=== PATIENT | male | born 1955 ===

== ENCOUNTER 2017-02-19 10:40 | Inpatient (IN) | payer BC ==
[2017-02-19 10:40] VITALS: BMI 29.0
[2017-02-19 11:38] LABS: BASO # 0.1 K/uL (0.0-0.2); BASO % 1.1 % (0.0-2.0); EOS # 0.4 K/uL (0.0-0.7); EOS % 3.4 % (0.0-4.0); HEMATOCRIT 46.7 % (35.0-51.0); LYMPH # 2.8 K/uL (1.0-4.3); LYMPH % 24.1 % (20.0-40.0); MEAN CELL VOLUME 84.8 fl (80.0-94.0); MEAN CORPUSCULAR HEMOGLOBIN 28.4 pg (27.0-31.0); MEAN CORPUSCULAR HGB CONC 33.5 g/dL (33.0-37.0); MEAN PLATELET VOLUME 8.7 fl (7.2-11.7); MONO # 0.7 K/uL (0.0-0.8); MONO % 6.5 % (0.0-10.0); NEUT # 7.4 K/uL (1.8-7.0); NEUT % 64.9 % (50.0-75.0); NRBC % 0.2 % (0.0-0.0); RED CELL DISTRIBUTION WIDTH 12.7 % (11.5-14.5); WHITE BLOOD COUNT 11.4 K/uL (4.8-10.8)
[2017-02-19 11:50] LABS: PARTIAL THROMBOPLASTIN TIME 35.7 Seconds (25.6-37.1)
[2017-02-19 12:12] LABS: BLOOD UREA NITROGEN 19 mg/dl (9-20); GFR AFRICAN-AMERICAN > 60
[2017-02-19 12:13] LABS: ALB/GLOB RATIO 1.1 (1.0-2.1)
--- NOTE | 2017-02-19 12:47 | ED PDOC ---
HPI: General Adult Time Seen by Provider: 02/19/17 10:53 Chief Complaint (Nursing): Palpitations Chief Complaint (Provider): palpitations, dizziness History Per: Family, Clinical Research Physician (Corazon #[id number]) History/Exam Limitations: no limitations Onset/Duration Of Symptoms: Days (3-4) Current Symptoms Are (Timing): Intermittent Episodes Severity: Moderate Recently: Treated By A Physician Additional Complaint(s): 62yo male presents from cardiology department where he was about to undergo a stress test w/ Dr Taylor, noticed runs of tachycardia on monitor, brought to ED instead. EKG from cardiology reveals possible junctional tachycardia. Patient c/o dizziness and over few days. Denies current chest pain or SOB. Past Medical History Reviewed: Historical Data, Nursing Documentation, Vital Signs Vital Signs: Last Vital Signs Temp 98.7 F 02/19/17 10:49 Pulse 71 02/19/17 11:30 Resp 17 02/19/17 10:49 BP 136/92 H 02/19/17 10:49 Pulse Ox 99 02/19/17 12:49 - Medical History PMH: HTN - Surgical History Surgical History: Cholecystectomy - Family History Family History: States: Unknown Family Hx - Social History Current smoker - smoking cessation education provided: No - Immunization History Hx Tetanus Toxoid Vaccination: No Hx Influenza Vaccination: Yes Hx Pneumococcal Vaccination: Yes - Home Medications Home Medications: Ambulatory Orders Medication Instructions Recorded Aspirin 81 mg PO DAILY 01/25/17 Losartan [Cozaar] 50 mg PO DAILY 01/25/17 Acetaminophen with Codeine 1 tab PO Q8H PRN 02/19/17 [Tylenol with Codeine #3 Tablet] Ergocalciferol (Vitamin D2) 50,000 unit PO FR 02/19/17 [Vitamin D2] - Allergies Allergies/Adverse Reactions: Allergies Allergy/AdvReac Type Severity Reaction Status Date / Time No Known Allergies Allergy Verified 02/19/17 10:42 Review of Systems ROS Statement: Except As Marked, All Systems Reviewed And Found Negative Constitutional: Negative for: Fever, Chills Cardiovascular: Positive for: Palpitations, Light Headedness Gastrointestinal: Negative for: Nausea, Vomiting Genitourinary Male: Negative for: Dysuria, Frequency Musculoskeletal: Negative for: Neck Pain, Shoulder Pain Skin: Negative for: Rash, Lesions, Jaundice Neurological: Positive for: Dizziness. Negative for: Weakness, Change in Speech Physical Exam - Reviewed Nursing Documentation Reviewed: Yes Vital Signs Reviewed: Yes - Physical Exam Appears: Positive for: Well, Non-toxic, No Acute Distress Head Exam: Positive for: ATRAUMATIC, NORMAL INSPECTION, NORMOCEPHALIC Skin: Positive for: Normal Color, Warm, DRY Eye Exam: Positive for: EOMI, Normal appearance, PERRL ENT: Positive for: Normal ENT Inspection Neck: Positive for: Normal, Painless ROM Cardiovascular/Chest: Positive for: Regular Rate, Rhythm, Tachycardia, Irregularly Irregular Respiratory: Positive for: CNT, Normal Breath Sounds Gastrointestinal/Abdominal: Positive for: Normal Exam, Bowel Sounds, Soft. Negative for: Tenderness, Guarding Back: Positive for: Normal Inspection Extremity: Positive for: Normal ROM Neurologic/Psych: Positive for: Alert, Oriented. Negative for: Motor/Sensory Deficits - Laboratory Results Result Diagrams: 02/19/17 11:20 02/19/17 11:20 - ECG O2 Sat by Pulse Oximetry: 99 Medical Decision Making Medical Decision Making: Dr Taylor packaging design engineer presented patient to ED with EKG in hand, recommends admitting for cardiac workup PMD Yung, discussed case who requested Dr Gant, consult placed. EKGs from cardiology dept scanned into chart Labs reviewed, trop neg ASA 81mg ordered d/w Dr Barragan for admission D/w Dr Gant for consult. Disposition - Clinical Impression Clinical Impression: Junctional tachycardia - Patient ED Disposition Is Patient to be Admitted: Yes Counseled Patient/Family Regarding: Studies Performed, Diagnosis, Need For Followup, Rx Given - Disposition Disposition Time: 12:35 Condition: STABLE - Pt Status Changed To: Hospital Disposition Of: Inpatient - Admit Certification Admit to Inpatient:: After my assessment, the patient will require hospitalization for at least two midnights. This is because of the severity of symptoms shown, intensity of services needed, and/or the medical risk in this patient being treated as an outpatient.
[2017-02-19 13:05] LABS: RBC URINE 2 /hpf (0-3); URINE BILIRUBIN NEGATIVE (NEGATIVE); URINE BLOOD NEGATIVE (NEGATIVE); URINE COLOR YELLOW (YELLOW); URINE GLUCOSE (UA) NEG (Normal); URINE KETONE NEGATIVE (NEGATIVE); URINE LEUKOCYTE ESTERASE NEG Leu/uL (Negative); URINE PROTEIN NEGATIVE (NEGATIVE); URINE UROBILINOGEN 0.2-1.0 mg/dL (0.2-1.0); WBC URINE < 1 /hpf (0-5)
[2017-02-19] MEDS ORDERED: Acetaminophen-Codeine 300/30 mg Tab PO PRN (15:33)
[2017-02-19] MEDS ORDERED: Ergocalciferol 50,000 Intl Units Cap PO SCH (15:45)
--- NOTE | 2017-02-19 16:01 | CP.PCM.HP ---
History of Present Illness - History of Present Illness History of Present Illness: 62 year old male with PMH of HTN, hx of abnormal EKG presented after being sent from stress test lab. He presented to have stress test done, abnornal rhythm strip was noted. Patient is currently asymptomatic in the emergency department. His HR 80-130s. Denies any dizziness, headahce, chest pain, dyspnea, nausea, vomiting, abdominal pain. He has not been recently ill. He denies cardiac history. He was referred to neurologist for headaches. Review of chart: ED visit in Jan 2017, dx with trigeminal neuralgia, given tegretol. EKG at that time showed sinus tachycardia with LAD 12 point review of systems otherwise negative. His PMD is Dr. Barragan. MEdications: losartan, aspirin Allergies: NKDA Present on Admission - Present on Admission Any Indicators Present on Admission: No Past Patient History - Past Social History Smoking Status: Former Smoker - CARDIAC Hx Hypertension: Yes - PSYCHIATRIC Hx Substance Use: No - SURGICAL HISTORY Hx Cholecystectomy: Yes Meds Allergies/Adverse Reactions: Allergies Allergy/AdvReac Type Severity Reaction Status Date / Time No Known Allergies Allergy Verified 02/19/17 10:42 Physical Exam - Constitutional Appears: Well, No Acute Distress - Head Exam Head Exam: ATRAUMATIC, NORMAL INSPECTION, NORMOCEPHALIC - ENT Exam ENT Exam: Mucous Membranes Moist, Normal Exam - Respiratory Exam Respiratory Exam: Clear to Auscultation Bilateral, NORMAL BREATHING PATTERN - Cardiovascular Exam Cardiovascular Exam: Tachycardia, Irregular Rhythm, +S1, +S2 - GI/Abdominal Exam GI & Abdominal Exam: Soft. absent: Distended, Guarding - Extremities Exam Extremities exam: Positive for: normal inspection. Negative for: pedal edema - Neurological Exam Neurological exam: Alert, CN II-XII Intact, Oriented x3 Additional comments: gait deferred for now - Psychiatric Exam Psychiatric exam: Normal Affect, Normal Mood - Skin Skin Exam: Dry, Intact, Normal Color, Warm Results - Vital Signs Recent Vital Signs: Last Vital Signs Temp 98.7 F 02/19/17 10:49 Pulse 71 02/19/17 11:30 Resp 17 02/19/17 10:49 BP 136/92 H 02/19/17 10:49 Pulse Ox 99 02/19/17 15:15 - Labs Result Diagrams: 02/19/17 11:20 02/19/17 11:20 Labs: Laboratory Results - last 24 hr 02/19/17 02/19/17 02/19/17 11:20 11:20 11:20 WBC 11.4 H RBC 5.51 Hgb 15.6 Hct 46.7 MCV 84.8 MCH 28.4 MCHC 33.5 RDW 12.7 Plt Count 295 MPV 8.7 Neut % (Auto) 64.9 Lymph % (Auto) 24.1 [place] % (Auto) 6.5 Eos % (Auto) 3.4 Baso % (Auto) 1.1 Neut # 7.4 H Lymph # 2.8 [place] # 0.7 Eos # 0.4 Baso # 0.1 PT 11.6 INR 1.0 APTT 35.7 Sodium 143 Potassium 4.4 Chloride 109 H Carbon Dioxide 23 Anion Gap 15 BUN 19 Creatinine 1.0 Est GFR ( Amer) > 60 Est GFR (Non-Af Amer) > 60 Random Glucose 133 H Calcium 8.9 Total Bilirubin 0.3 AST 21 ALT 53 Alkaline Phosphatase 113 Troponin I < 0.0120 NT-Pro-B Natriuret Pep 57.1 Total Protein 7.2 Albumin 3.7 Globulin 3.5 Albumin/Globulin Ratio 1.1 Urine Color Urine Clarity Urine pH Ur Specific [place] Urine Protein Urine Glucose (UA) Urine Ketones Urine Blood Urine Nitrate Urine Bilirubin Urine Urobilinogen Ur Leukocyte Esterase Urine RBC (Auto) Urine Microscopic WBC 02/19/17 12:50 WBC RBC Hgb Hct MCV MCH MCHC RDW Plt Count MPV Neut % (Auto) Lymph % (Auto) [place] % (Auto) Eos % (Auto) Baso % (Auto) Neut # Lymph # [place] # Eos # Baso # PT INR APTT Sodium Potassium Chloride Carbon Dioxide Anion Gap BUN Creatinine Est GFR ( Amer) Est GFR (Non-Af Amer) Random Glucose Calcium Total Bilirubin AST ALT Alkaline Phosphatase Troponin I NT-Pro-B Natriuret Pep Total Protein Albumin Globulin Albumin/Globulin Ratio Urine Color Yellow Urine Clarity Clear Urine pH 6.0 Ur Specific [place] 1.011 Urine Protein Negative Urine Glucose (UA) Neg Urine Ketones Negative Urine Blood Negative Urine Nitrate Negative Urine Bilirubin Negative Urine Urobilinogen 0.2-1.0 Ur Leukocyte Esterase Neg Urine RBC (Auto) 2 Urine Microscopic WBC < 1 Assessment & Plan (1) Abnormal EKG Assessment and Plan: 62 year old male with hx of htn, trigeminal neuralgia admitted for abnormal ekg with tachycardia. Patient has never had echo. Echo ordered cardiology consult. can give losartan now for htn await further input from cardiology heart healthy diet pending tsh, lipid panel in AM Status: Acute (2) Hypertension Assessment and Plan: resume home medications Status: Chronic
[2017-02-19 16:39] LABS: THYROID STIMULATING HORMONE 4.06 mIU/ML (0.46-4.68)
[2017-02-19 16:41] LABS: SODIUM 143 mmol/l (132-148)
[2017-02-19 16:42] LABS: POTASSIUM 4.4 MMOL/L (3.6-5.0)
[2017-02-19 16:43] LABS: CHLORIDE 109 mmol/L (98-107)
[2017-02-19 16:44] LABS: CARBON DIOXIDE 23 mmol/L (22-30)
[2017-02-19 16:45] LABS: TOTAL PROTEIN 7.2 G/DL (6.3-8.2)
[2017-02-19 16:49] LABS: BILIRUBIN,TOTAL 0.3 mg/dl (0.2-1.3)
[2017-02-19 16:50] LABS: AST/SGOT 21 U/L (17-59)
[2017-02-19 16:51] LABS: ALT/SGPT 53 U/L (21-72)
[2017-02-19 16:52] LABS: ALKALINE PHOSPHATASE 113 U/L (38-126)
[2017-02-19 16:58] LABS: CALCIUM 8.9 mg/dL (8.4-10.2)
[2017-02-19 16:59] LABS: GLUCOSE,RANDOM 133 mg/dL (75-110)
--- NOTE | 2017-02-19 17:39 | CARD ---
APPROVED REPORT EKG Measurement Heart [id number] IN P54 [id number] <Conclusion> NSR with APCs [place] (4 beats ) narrow complex tachycardia rate 110-120 bpm
--- NOTE | 2017-02-19 18:50 | CP.PCM.CON ---
History of Present Illness - History of Present Illness History of Present Illness: patient seen/examined. consult to follow. has dyspnea on exertion was scheduled for stress test found to have ecopic atrial tachycardia. Plan: check cardiac enzymes. will give IV cardizem. check echocardiogram. Past Patient History - Past Medical History & Family History Past Medical History?: Yes - Past Social History Smoking Status: Never Smoked - CARDIAC Hx Cardiac Disorders: Yes Hx Hypertension: Yes - PULMONARY Hx Respiratory Disorders: No - NEUROLOGICAL Hx Neurological Disorder: No - HEENT Hx HEENT Problems: No - RENAL Hx Chronic Kidney Disease: No - ENDOCRINE/METABOLIC Hx Endocrine Disorders: No - HEMATOLOGICAL/ONCOLOGICAL Hx Blood Disorders: No Hx AIDS: No Hx Human Immunodeficiency Virus (HIV): No - INTEGUMENTARY Hx Dermatological Problems: No - MUSCULOSKELETAL/RHEUMATOLOGICAL Hx Musculoskeletal Disorders: No Hx Falls: No - GASTROINTESTINAL Hx Gastrointestinal Disorders: Yes Hx Gall Bladder Disease: Yes - GENITOURINARY/GYNECOLOGICAL Hx Genitourinary Disorders: No - PSYCHIATRIC Hx Psychophysiologic Disorder: No Hx Substance Use: No - SURGICAL HISTORY Hx Surgeries: Yes Hx Cholecystectomy: Yes - ANESTHESIA Hx Anesthesia: Yes Hx Anesthesia Reactions: No Hx Malignant Hyperthermia: No Has any member of the family had a problem w/ anesthesia?: No Meds Allergies/Adverse Reactions: Allergies Allergy/AdvReac Type Severity Reaction Status Date / Time No Known Allergies Allergy Verified 02/19/17 10:42 - Medications Medications: Current Medications Acetaminophen/Codeine Phosphate (Tylenol/Codeine 300 Mg/30 Mg) 1 tab PO Q8H PRN PRN Reason: Pain, severe (8-10) Aspirin (Aspirin Chewable) 81 mg PO DAILY [facility] Last Admin: 02/19/17 16:12 Dose: 81 mg Ergocalciferol (Drisdol 50,000 Intl Units Cap) 1 cap PO FR [facility] Last Admin: 02/19/17 18:01 Dose: 1 cap Losartan Potassium (Cozaar) 50 mg PO DAILY [facility] Results - Vital Signs Recent Vital Signs: Last Vital Signs Temp 98.6 F 02/19/17 16:57 Pulse 125 H 02/19/17 16:57 Resp 18 02/19/17 17:20 BP 123/87 02/19/17 16:57 Pulse Ox 98 02/19/17 16:57 - Labs Result Diagrams: 02/19/17 11:20 02/19/17 11:20 Labs: Laboratory Results - last 24 hr 02/19/17 02/19/17 02/19/17 11:20 11:20 11:20 WBC 11.4 H RBC 5.51 Hgb 15.6 Hct 46.7 MCV 84.8 MCH 28.4 MCHC 33.5 RDW 12.7 Plt Count 295 MPV 8.7 Neut % (Auto) 64.9 Lymph % (Auto) 24.1 [place] % (Auto) 6.5 Eos % (Auto) 3.4 Baso % (Auto) 1.1 Neut # 7.4 H Lymph # 2.8 [place] # 0.7 Eos # 0.4 Baso # 0.1 PT 11.6 INR 1.0 APTT 35.7 Sodium 143 Potassium 4.4 Chloride 109 H Carbon Dioxide 23 Anion Gap 15 BUN 19 Creatinine 1.0 Est GFR ( Amer) > 60 Est GFR (Non-Af Amer) > 60 Random Glucose 133 H Calcium 8.9 Total Bilirubin 0.3 AST 21 ALT 53 Alkaline Phosphatase 113 Troponin I < 0.0120 NT-Pro-B Natriuret Pep 57.10 Total Protein 7.2 Albumin 3.7 Globulin 3.5 Albumin/Globulin Ratio 1.1 TSH 3rd Generation 4.06 Urine Color Urine Clarity Urine pH Ur Specific [place] Urine Protein Urine Glucose (UA) Urine Ketones Urine Blood Urine Nitrate Urine Bilirubin Urine Urobilinogen Ur Leukocyte Esterase Urine RBC (Auto) Urine Microscopic WBC 02/19/17 12:50 WBC RBC Hgb Hct MCV MCH MCHC RDW Plt Count MPV Neut % (Auto) Lymph % (Auto) [place] % (Auto) Eos % (Auto) Baso % (Auto) Neut # Lymph # [place] # Eos # Baso # PT INR APTT Sodium Potassium Chloride Carbon Dioxide Anion Gap BUN Creatinine Est GFR ( Amer) Est GFR (Non-Af Amer) Random Glucose Calcium Total Bilirubin AST ALT Alkaline Phosphatase Troponin I NT-Pro-B Natriuret Pep Total Protein Albumin Globulin Albumin/Globulin Ratio TSH 3rd Generation Urine Color Yellow Urine Clarity Clear Urine pH 6.0 Ur Specific [place] 1.011 Urine Protein Negative Urine Glucose (UA) Neg Urine Ketones Negative Urine Blood Negative Urine Nitrate Negative Urine Bilirubin Negative Urine Urobilinogen 0.2-1.0 Ur Leukocyte Esterase Neg Urine RBC (Auto) 2 Urine Microscopic WBC < 1
--- NOTE | 2017-02-19 18:51 | CP.PCM.CON ---
History of Present Illness - History of Present Illness History of Present Illness: I was asked to see patient by Dr Barragan. Patient is a 62 year old male with PMH HTN, hypercholesterolemia who presents with dsypnea. Symptoms have been progressive for the past few weeks, and the patient was noted was scheduled to have outapteint stress test. He was sent to the ER due to junctional tachycardia. Patient denies current chest pain. Review of Systems - Constitutional Constitutional: absent: As Per HPI, Anorexia, Chills, Daytime Sleepiness, Excessive Sweating, Fatigue, Fever, Frequent Falls, Headache, Increased Appetite , Lethargy, Malaise, Night Sweats, Snoring, Sleep Apnea, Weight Gain, Weight Loss, Weakness, Other - EENT Eyes: absent: As Per HPI, Blind Spots, Blurred Vision, Change in Vision, Decreased Night Vision, Diplopia, Discharge, Dry Eye, Exophthalmos, Floaters, Irritation, Itchy Eyes, Loss of Peripheral Vision, Pain, Photophobia, Requires Corrective Lenses, Sees Flashes, Spots in Vision, Tunnel Vision, Other Visual Disturbances, Loss of Vision, Other Ears: absent: As Per HPI, Decreased Hearing, Ear Discharge, Ear Pain, Tinnitus, Abnormal Hearing, Disequilibrium, Dizziness, Other Nose/Mouth/Throat: absent: As Per HPI, Epistaxis, Nasal Congestion, Nasal Discharge, Nasal Obstruction, Nasal Trauma, Nose Pain, Post Nasal Drip, Sinus Pain, Sinus Pressure, Bleeding Gums, Change in Voice, Dental Pain, Dry Mouth, Dysphagia, Halitosis, Hoarsness, Lip Swelling, Mouth Lesions, Mouth Pain, Odynophagia, Sore Throat, Throat Swelling, Tongue Swelling, Facial Pain, Neck Pain, Neck Mass, Other - Cardiovascular Cardiovascular: absent: As Per HPI, Acrocyanosis, Chest Pain, Chest Pain at Rest , Chest Pain with Activity, Claudication, Diaphoresis, Dyspnea, Dyspnea on Exertion, Edema, Irregular Heart Rhythm, Pain Radiating to Arm/Neck/Jaw, Leg Edema, Leg Ulcers, Lightheadedness, Orthopnea, Palpitations, Paroxysmal Nocturnal Dyspnea, Pedal Edema, Radiating Pain, Rapid Heart Rate, Slow Heart Rate, Syncope, Other - Respiratory Respiratory: absent: As Per HPI, Cough, Dyspnea, Hemoptysis, Dyspnea on Exertion , Wheezing, Snoring, Stridor, Pain on Inspiration, Chest Congestion, Excessive Mucous Production, Change in Mucous Color, Pain with Coughing, Other - Gastrointestinal Gastrointestinal: absent: As Per HPI, Abdominal Pain, Belching, Bloating, Change in Bowel Habits, Change in Stool Character, Coffee Ground Emesis, Constipation, Cramping, Diarrhea, Dyspepsia, Dysphagia, Early Satiety, Excessive Flatus, Fecal Incontinence, Heartburn, Hematemesis, Hematochezia, Loose Stools, Melena, Nausea, Odynophagia, Temesmus, Vomiting, Other - Genitourinary Genitourinary: absent: As Per HPI, Change in Urinary Stream, Difficulty Urinating, Dysuria, Flank Pain, Hematuria, Pyuria, Nocturia, Urinary Incontinence, Urinary Frequency, Urinary Hesitance, Urinary Urgency, Voiding Freq/Small Amts, Freq UTI, Hx Renal/Bladder Calculi, Hx /Renal Surgery, Bladder Distension, Other - Musculoskeletal Musculoskeletal: absent: As Per HPI, Abnormal Gait, Arthralgias, Atrophy, Back Pain, Deformity, Joint Swelling, Limited Range of Motion, Loss of Height, Muscle Cramps, Muscle Weakness, Myalgias, Neck Pain, Numbness, Radiating Pain into Limb, Stiffness, Tingling, Other - Integumentary Integumentary: absent: As Per HPI, Acne, Alopecia, Bleeding Lesions, Change in Hair, Change in Nails, Change in Pigmentation, Changing Lesions, Dry Skin, Erythema, Furuncle, Hirsutism, Lesions, New Lesions, Non-Healing Lesions, Photosensitivity, Pruritus, Rash, Skin Pain, Skin Ulcer, Sores, Striae, Swelling , Unusual Bruising, Wounds, Jaundice, Other - Neurological Neurological: absent: As Per HPI, Abnormal Gait, Abnormal Hearing, Abnormal Movements, Abnormal Speech, Behavioral Changes, Burning Sensations, Confusion, Convulsions, Disequilibrium, Dizziness, Numbness, Focal Weakness, Frequent Falls , Headaches, Lack of Coordination, Loss of Vision, Memory Loss, Paresthesias, Radicular Pain, Restless Legs, Sensory Deficit, Syncope, Tingling, Tremor, Vertigo, Weakness, Other Visual Disturbances, Other - Psychiatric Psychiatric: absent: As Per HPI, Abnormal Sleep Pattern, Anhedonia, Anxiety, Auditory Hallucinations, Behavioral Changes, Change in Appetite, Change in Libido, Confusion, Depression, Difficulty Concentrating, Hallucinations, Homicidal Ideation, Hopelessness, Irritability, Memory Loss, Mood Swings, Panic Attacks, Paranoia, Suicidal Ideation, Visual Hallucinations, Tactile Hallucinations, Other - Endocrine Endocrine: absent: As Per HPI, Change in Body Appearance, Change in Libido, Cold Intolorance, Deepening of Voice, Excessive Sweating, Fatigue, Flushing, Heat Intolorance, Increase in Ring/Shoe/Hat Size, Palpitations, Polydipsia, Polyphagia, Polyuria, Other - Hematologic/Lymphatic Hematologic: absent: As Per HPI, Easy Bleeding, Easy Bruising, Lymphadenopathy, Other Past Patient History - Past Medical History & Family History Past Medical History?: Yes - Past Social History Smoking Status: Never Smoked - CARDIAC Hx Cardiac Disorders: Yes Hx Hypertension: Yes - PULMONARY Hx Respiratory Disorders: No - NEUROLOGICAL Hx Neurological Disorder: No - HEENT Hx HEENT Problems: No - RENAL Hx Chronic Kidney Disease: No - ENDOCRINE/METABOLIC Hx Endocrine Disorders: No - HEMATOLOGICAL/ONCOLOGICAL Hx Blood Disorders: No Hx AIDS: No Hx Human Immunodeficiency Virus (HIV): No - INTEGUMENTARY Hx Dermatological Problems: No - MUSCULOSKELETAL/RHEUMATOLOGICAL Hx Musculoskeletal Disorders: No Hx Falls: No - GASTROINTESTINAL Hx Gastrointestinal Disorders: Yes Hx Gall Bladder Disease: Yes - GENITOURINARY/GYNECOLOGICAL Hx Genitourinary Disorders: No - PSYCHIATRIC Hx Psychophysiologic Disorder: No Hx Substance Use: No - SURGICAL HISTORY Hx Surgeries: Yes Hx Cholecystectomy: Yes - ANESTHESIA Hx Anesthesia: Yes Hx Anesthesia Reactions: No Hx Malignant Hyperthermia: No Has any member of the family had a problem w/ anesthesia?: No Meds Allergies/Adverse Reactions: Allergies Allergy/AdvReac Type Severity Reaction Status Date / Time No Known Allergies Allergy Verified 02/19/17 10:42 - Medications Medications: Current Medications Acetaminophen/Codeine Phosphate (Tylenol/Codeine 300 Mg/30 Mg) 1 tab PO Q8H PRN PRN Reason: Pain, severe (8-10) Aspirin (Aspirin Chewable) 81 mg PO DAILY [facility] Last Admin: 02/19/17 16:12 Dose: 81 mg Ergocalciferol (Drisdol 50,000 Intl Units Cap) 1 cap PO FR [facility] Last Admin: 02/19/17 18:01 Dose: 1 cap Losartan Potassium (Cozaar) 50 mg PO DAILY [facility] Physical Exam - Constitutional Appears: Non-toxic - Head Exam Head Exam: NORMAL INSPECTION - Eye Exam Eye Exam: Normal appearance - ENT Exam ENT Exam: Mucous Membranes Moist - Neck Exam Neck exam: Positive for: Full Rom - Respiratory Exam Respiratory Exam: NORMAL BREATHING PATTERN - Cardiovascular Exam Cardiovascular Exam: REGULAR RHYTHM - GI/Abdominal Exam GI & Abdominal Exam: Normal Bowel Sounds - Rectal Exam Rectal Exam: Deferred - Extremities Exam Extremities exam: Positive for: normal inspection - Back Exam Back exam: NORMAL INSPECTION - Neurological Exam Neurological exam: Alert, Oriented x3 - Psychiatric Exam Psychiatric exam: Normal Affect - Skin Skin Exam: Normal Color Results - Vital Signs Recent Vital Signs: Last Vital Signs Temp 98.6 F 02/19/17 16:57 Pulse 128 H 02/19/17 18:47 Resp 18 02/19/17 18:47 BP 132/89 02/19/17 18:47 Pulse Ox 98 02/19/17 18:47 - Labs Result Diagrams: 02/19/17 11:20 02/19/17 11:20 Labs: Laboratory Results - last 24 hr 02/19/17 02/19/17 02/19/17 11:20 11:20 11:20 WBC 11.4 H RBC 5.51 Hgb 15.6 Hct 46.7 MCV 84.8 MCH 28.4 MCHC 33.5 RDW 12.7 Plt Count 295 MPV 8.7 Neut % (Auto) 64.9 Lymph % (Auto) 24.1 [place] % (Auto) 6.5 Eos % (Auto) 3.4 Baso % (Auto) 1.1 Neut # 7.4 H Lymph # 2.8 [place] # 0.7 Eos # 0.4 Baso # 0.1 PT 11.6 INR 1.0 APTT 35.7 Sodium 143 Potassium 4.4 Chloride 109 H Carbon Dioxide 23 Anion Gap 15 BUN 19 Creatinine 1.0 Est GFR ( Amer) > 60 Est GFR (Non-Af Amer) > 60 Random Glucose 133 H Calcium 8.9 Total Bilirubin 0.3 AST 21 ALT 53 Alkaline Phosphatase 113 Troponin I < 0.0120 NT-Pro-B Natriuret Pep 57.10 Total Protein 7.2 Albumin 3.7 Globulin 3.5 Albumin/Globulin Ratio 1.1 TSH 3rd Generation 4.06 Urine Color Urine Clarity Urine pH Ur Specific [place] Urine Protein Urine Glucose (UA) Urine Ketones Urine Blood Urine Nitrate Urine Bilirubin Urine Urobilinogen Ur Leukocyte Esterase Urine RBC (Auto) Urine Microscopic WBC 02/19/17 12:50 WBC RBC Hgb Hct MCV MCH MCHC RDW Plt Count MPV Neut % (Auto) Lymph % (Auto) [place] % (Auto) Eos % (Auto) Baso % (Auto) Neut # Lymph # [place] # Eos # Baso # PT INR APTT Sodium Potassium Chloride Carbon Dioxide Anion Gap BUN Creatinine Est GFR ( Amer) Est GFR (Non-Af Amer) Random Glucose Calcium Total Bilirubin AST ALT Alkaline Phosphatase Troponin I NT-Pro-B Natriuret Pep Total Protein Albumin Globulin Albumin/Globulin Ratio TSH 3rd Generation Urine Color Yellow Urine Clarity Clear Urine pH 6.0 Ur Specific [place] 1.011 Urine Protein Negative Urine Glucose (UA) Neg Urine Ketones Negative Urine Blood Negative Urine Nitrate Negative Urine Bilirubin Negative Urine Urobilinogen 0.2-1.0 Ur Leukocyte Esterase Neg Urine RBC (Auto) 2 Urine Microscopic WBC < 1 - EKG Data EKG Interpreted by: Myself Assessment & Plan (1) Dyspnea Assessment and Plan: patient will require evaluation of ventricular function givne symptoms. echocardiogram. will rate control. Status: Acute (2) Junctional tachycardia Assessment and Plan: givne cardizem and will reassess Status: Acute (3) Hypertension Assessment and Plan: blood pressure control Status: Chronic
[2017-02-20 07:16] LABS: CHOLESTEROL 170 mg/dL (0-199)
[2017-02-20] MEDS ORDERED: diltiaZEM 100 mg Vial ( ADD-VANTAGE ) IV ONE (10:00)
--- NOTE | 2017-02-20 10:22 | CP.PCM.PN ---
Subjective - Date & Time of Evaluation Date of Evaluation: 02/20/17 Time of Evaluation: 10:21 - Subjective Subjective: Patient has no chest pain but still with episodes of atrial tach Objective - Vital Signs/Intake and Output Vital Signs (last 24 hours): Temp Pulse Resp BP Pulse Ox 98 F 120 H 18 120/84 94 L 02/20/17 08:11 02/20/17 10:03 02/20/17 10:03 02/20/17 10:03 02/20/17 10:03 - Medications Medications: Current Medications Acetaminophen/Codeine Phosphate (Tylenol/Codeine 300 Mg/30 Mg) 1 tab PO Q8H PRN PRN Reason: Pain, severe (8-10) Aspirin (Aspirin Chewable) 81 mg PO DAILY [facility] Last Admin: 02/20/17 08:50 Dose: 81 mg Ergocalciferol (Drisdol 50,000 Intl Units Cap) 1 cap PO FR [facility] Last Admin: 02/19/17 18:01 Dose: 1 cap Diltiazem HCl 100 mg/ Sodium (Chloride) 100 mls @ 10 mls/hr IV .Q10H [facility]; 10 MG /HR PRN Reason: Protocol Last Admin: 02/20/17 10:07 Dose: 10 mg/hr, 10 mls/hr Losartan Potassium (Cozaar) 50 mg PO DAILY [facility] Last Admin: 02/20/17 08:53 Dose: 50 mg - Labs Labs: 02/19/17 11:20 02/19/17 11:20 PT 11.6 Seconds (9.8-13.1) 02/19/17 11:20 INR 1.0 (0.9-1.2) 02/19/17 11:20 APTT 35.7 Seconds (25.6-37.1) 02/19/17 11:20
--- NOTE | 2017-02-20 11:42 | CP.PCM.PN ---
Subjective - Date & Time of Evaluation Date of Evaluation: 02/20/17 Time of Evaluation: 12:00 - Subjective Subjective: will start cardizem drip for rate control. Objective - Vital Signs/Intake and Output Vital Signs (last 24 hours): Temp Pulse Resp BP Pulse Ox 98 F 120 H 18 120/84 94 L 02/20/17 08:11 02/20/17 10:03 02/20/17 10:03 02/20/17 10:03 02/20/17 10:03 - Medications Medications: Current Medications Acetaminophen/Codeine Phosphate (Tylenol/Codeine 300 Mg/30 Mg) 1 tab PO Q8H PRN PRN Reason: Pain, severe (8-10) Aspirin (Aspirin Chewable) 81 mg PO DAILY [facility]BIE Last Admin: 02/20/17 08:50 Dose: 81 mg Ergocalciferol (Drisdol 50,000 Intl Units Cap) 1 cap PO FR [facility] Last Admin: 02/19/17 18:01 Dose: 1 cap Diltiazem HCl 100 mg/ Sodium (Chloride) 100 mls @ 10 mls/hr IV .Q10H ROBBIE; 10 MG /HR PRN Reason: Protocol Last Admin: 02/20/17 10:07 Dose: 10 mg/hr, 10 mls/hr Losartan Potassium (Cozaar) 50 mg PO DAILY ROBBIE Last Admin: 02/20/17 08:53 Dose: 50 mg - Labs Labs: 02/19/17 11:20 02/19/17 11:20 PT 11.6 Seconds (9.8-13.1) 02/19/17 11:20 INR 1.0 (0.9-1.2) 02/19/17 11:20 APTT 35.7 Seconds (25.6-37.1) 02/19/17 11:20
--- NOTE | 2017-02-21 11:44 | CP.PCM.PN ---
Subjective - Date & Time of Evaluation Date of Evaluation: 02/21/17 Time of Evaluation: 11:30 - Subjective Subjective: patient had periods of sinus rhythm on the monitor, and then had periods of SVT. Objective - Vital Signs/Intake and Output Vital Signs (last 24 hours): Temp Pulse Resp BP Pulse Ox 98.7 F 81 20 124/75 96 02/21/17 08:00 02/21/17 09:00 02/21/17 08:00 02/21/17 08:51 02/21/17 08:00 Intake and Output: 02/21/17 02/21/17 06:59 18:59 Intake Total 100 100 Balance 100 100 - Medications Medications: Current Medications Acetaminophen/Codeine Phosphate (Tylenol/Codeine 300 Mg/30 Mg) 1 tab PO Q8H PRN PRN Reason: Pain, severe (8-10) Aspirin (Aspirin Chewable) 81 mg PO DAILY [facility] Last Admin: 02/21/17 08:51 Dose: 81 mg Ergocalciferol (Drisdol 50,000 Intl Units Cap) 1 cap PO FR [facility] Last Admin: 02/19/17 18:01 Dose: 1 cap Diltiazem HCl 100 mg/ Sodium (Chloride) 100 mls @ 10 mls/hr IV .Q10H ROBBIE; 10 MG /HR PRN Reason: Protocol Last Admin: 02/21/17 08:46 Dose: 10 mg/hr, 10 mls/hr Losartan Potassium (Cozaar) 50 mg PO DAILY [facility] Last Admin: 02/21/17 08:51 Dose: 50 mg Metoprolol Tartrate (Lopressor) 25 mg PO Q12 ROBBIE - Labs Labs: 02/19/17 11:20 02/19/17 11:20 PT 11.6 Seconds (9.8-13.1) 02/19/17 11:20 INR 1.0 (0.9-1.2) 02/19/17 11:20 APTT 35.7 Seconds (25.6-37.1) 02/19/17 11:20 - Constitutional Appears: Non-toxic - Head Exam Head Exam: NORMAL INSPECTION - Eye Exam Eye Exam: Normal appearance - ENT Exam ENT Exam: Mucous Membranes Moist - Neck Exam Neck Exam: Normal Inspection - Respiratory Exam Respiratory Exam: Decreased Breath Sounds - Cardiovascular Exam Cardiovascular Exam: Irregular Rhythm - GI/Abdominal Exam GI & Abdominal Exam: Normal Bowel Sounds - Rectal Exam Rectal Exam: Deferred - Extremities Exam Extremities Exam: absent: Pedal Edema - Back Exam Back Exam: NORMAL INSPECTION - Neurological Exam Neurological Exam: Alert - Psychiatric Exam Psychiatric exam: Normal Affect - Skin Skin Exam: Normal Color Assessment and Plan (1) Junctional tachycardia Assessment & Plan: given periods of rapid ventricular rate, Patient will benefit from likely EP study. I will consult Dr Brennan. Echocardiogram reviewed, Normal left ventricular function. Status: Acute (2) Hypertension Status: Chronic
--- NOTE | 2017-02-21 12:58 | CP.PCM.PN ---
Subjective - Date & Time of Evaluation Date of Evaluation: 02/21/17 Time of Evaluation: 12:56 - Subjective Subjective: patient feels better but still with episodes of tachycardia up to [address] [place] Gant Objective - Vital Signs/Intake and Output Vital Signs (last 24 hours): Temp Pulse Resp BP Pulse Ox 98.5 F 84 18 110/73 95 02/21/17 12:00 02/21/17 12:00 02/21/17 12:00 02/21/17 12:00 02/21/17 12:00 Intake and Output: 02/21/17 02/21/17 06:59 18:59 Intake Total 100 100 Balance 100 100 - Medications Medications: Current Medications Acetaminophen/Codeine Phosphate (Tylenol/Codeine 300 Mg/30 Mg) 1 tab PO Q8H PRN PRN Reason: Pain, severe (8-10) Aspirin (Aspirin Chewable) 81 mg PO DAILY [facility] Last Admin: 02/21/17 08:51 Dose: 81 mg Ergocalciferol (Drisdol 50,000 Intl Units Cap) 1 cap PO FR [facility] Last Admin: 02/19/17 18:01 Dose: 1 cap Diltiazem HCl 100 mg/ Sodium (Chloride) 100 mls @ 10 mls/hr IV .Q10H ROBBIE; 10 MG /HR PRN Reason: Protocol Last Admin: 02/21/17 08:46 Dose: 10 mg/hr, 10 mls/hr Losartan Potassium (Cozaar) 50 mg PO DAILY [facility] Last Admin: 02/21/17 08:51 Dose: 50 mg Metoprolol Tartrate (Lopressor) 25 mg PO Q12 ROBBIE - Labs Labs: 02/19/17 11:20 02/19/17 11:20 PT 11.6 Seconds (9.8-13.1) 02/19/17 11:20 INR 1.0 (0.9-1.2) 02/19/17 11:20 APTT 35.7 Seconds (25.6-37.1) 02/19/17 11:20 - Head Exam Head Exam: NORMAL INSPECTION - Eye Exam Eye Exam: Normal appearance - ENT Exam ENT Exam: Mucous Membranes Moist - Respiratory Exam Respiratory Exam: Clear to Ausculation Bilateral - Cardiovascular Exam Cardiovascular Exam: Irregular Rhythm - GI/Abdominal Exam GI & Abdominal Exam: Normal Bowel Sounds Assessment and Plan (1) Sick sinus syndrome Status: Acute (2) Junctional tachycardia Status: Acute (3) Hypertension Status: Chronic - Assessment and Plan (Free Text) Plan: cont meds cont tx EPS studies discussed ablation with patient.
--- NOTE | 2017-02-21 13:23 | CP.PCM.PN ---
Subjective - Date & Time of Evaluation Date of Evaluation: 02/21/17 Time of Evaluation: 13:21 - Subjective Subjective: Complains of pain and tenderness on the left wrist and forearm. Noted phlebitis Plan will start po augmentin ibuprofen and warm compress joann lopez Objective - Vital Signs/Intake and Output Vital Signs (last 24 hours): Temp Pulse Resp BP Pulse Ox 98.5 F 84 18 110/73 95 02/21/17 12:00 02/21/17 13:09 02/21/17 12:00 02/21/17 13:09 02/21/17 12:00 Intake and Output: 02/21/17 02/21/17 06:59 18:59 Intake Total 100 100 Balance 100 100 - Medications Medications: Current Medications Acetaminophen/Codeine Phosphate (Tylenol/Codeine 300 Mg/30 Mg) 1 tab PO Q8H PRN PRN Reason: Pain, severe (8-10) Aspirin (Aspirin Chewable) 81 mg PO DAILY [facility] Last Admin: 02/21/17 08:51 Dose: 81 mg Ergocalciferol (Drisdol 50,000 Intl Units Cap) 1 cap PO FR [facility] Last Admin: 02/19/17 18:01 Dose: 1 cap Diltiazem HCl 100 mg/ Sodium (Chloride) 100 mls @ 10 mls/hr IV .Q10H ROBBIE; 10 MG /HR PRN Reason: Protocol Last Admin: 02/21/17 08:46 Dose: 10 mg/hr, 10 mls/hr Losartan Potassium (Cozaar) 50 mg PO DAILY [facility]IBE Last Admin: 02/21/17 08:51 Dose: 50 mg Metoprolol Tartrate (Lopressor) 25 mg PO Q12 [facility]BIE Last Admin: 02/21/17 13:09 Dose: 25 mg - Labs Labs: 02/19/17 11:20 02/19/17 11:20 PT 11.6 Seconds (9.8-13.1) 02/19/17 11:20 INR 1.0 (0.9-1.2) 02/19/17 11:20 APTT 35.7 Seconds (25.6-37.1) 02/19/17 11:20 Assessment and Plan (1) Sick sinus syndrome Status: Acute (2) Junctional tachycardia Status: Acute (3) Hypertension Status: Chronic
[2017-02-21] MEDS: Amoxicillin-Clav 875-125 mg Tab PO SCH (21:02)
[2017-02-22 00:03] VITALS: RESP 18
[2017-02-22 05:03] VITALS: O2SAT 98
[2017-02-22] MEDS: Amoxicillin-Clav 875-125 mg Tab PO SCH (09:38)
--- NOTE | 2017-02-22 12:15 | CARD ---
APPROVED REPORT EXAM: Two-dimensional and M-mode echocardiogram with Doppler and color Doppler. Other Information Quality : GoodRhythm : PVC's INDICATION Abnormal EKG/Arrhythmia 2D DIMENSIONS Left Atrium (2D)3.91 (1.6-4.0cm)IVSd1.18 (0.7-1.1cm) Aortic Root (2D)3.41 (2.0-3.7cm)LVDd4.58 (3.9-5.9cm) LVOT Diameter2.18 (1.8-2.4cm)PWd1.06 (0.7-1.1cm) IVSs1.52 (0.8-1.2cm)LVDs3.17 (2.5-4.0cm) FS (%) 30.8 %PWs0.92 (0.8-1.2cm) M-Mode DIMENSIONS Left Atrium (MM)4.03 (2.5-4.0cm)IVSd1.00 (0.7-1.1cm) Aortic Root3.41 (2.2-3.7cm)LVDd5.12 (4.0-5.6cm) Aortic Cusp Exc.1.91 (1.5-2.0cm)PWd1.06 (0.7-1.1cm) IVSs1.35 cmFS (%) 33 % LVDs3.41 (2.0-3.8cm)PWs1.35 cm Mitral Valve MV E Vweqipnu24.4cm/sMV DECEL [id number] A Fjxtyqtu06.1cm/s MV ZHE88jjD/A ratio1.2MVA (PHT)3.90cm2 TDI Lateral E' Peak V11.08cm/sMedial E' Peak V8.56cm/sE/Lateral E'4.5 E/Medial E'5.8 Pulmonary Valve PV Peak Envtkoxg69.4cm/s LEFT VENTRICLE The left ventricle is normal size. There is normal left ventricular wall thickness. The left ventricular function is normal. The left ventricular ejection fraction is 60% There is normal LV segmental wall motion. The left ventricular diastolic function is normal. No left ventricle thrombus noted on this study. There is no ventricular septal defect visualized. There is no left ventricular aneurysm. There is no mass noted in the left ventricle. RIGHT VENTRICLE The right ventricle is normal size. There is normal right ventricular wall thickness. The right ventricular systolic function is normal. ATRIA The left atrium size is normal. The right atrium size is normal. The interatrial septum is intact with no evidence for an atrial septal defect. AORTIC VALVE The aortic valve is normal in structure. No aortic regurgitation is present. There is no aortic valvular stenosis. There is no aortic valvular vegetation. MITRAL VALVE The mitral valve is normal in structure. There is no evidence of mitral valve prolapse. There is no mitral valve stenosis. There is no mitral valve regurgitation noted. TRICUSPID VALVE The tricuspid valve is normal in structure. There is no tricuspid valve regurgitation noted. There is no tricuspid valve prolapse or vegetation. There is no tricuspid valve stenosis. PULMONIC VALVE The pulmonary valve is normal in structure. There is no pulmonic valvular regurgitation. There is no pulmonic valvular stenosis. GREAT VESSELS The aortic root is normal in size. The ascending aorta is normal in size. The IVC is normal in size and collapses >50% with inspiration. PERICARDIAL EFFUSION The pericardium appears normal. There is no pleural effusion. <Conclusion> Normal Echocardiogram
[2017-02-22 12:18] VITALS: BP 122/87; PULSE 72; TEMP 98.9
--- NOTE | 2017-02-22 14:10 | PQF GENQUE ---
Dr. Barragan, A cause and effect relationship may not be assumed and must be documented by a provider. Please clarify the relationship, if any, between:Phlebitis documented in the progress note and the Nurses Note: 02/20@0100: IVF infiltrated left wrist ,removed & reinserted to right hand & cardizem drip resume Are the conditions: Due to or associated with each other: i.e. Phlebitis a complication following infusion or therapeutic injection OR Unrelated to each other OR Clinically unable to determine OR Unknown 02/21 Attending progress note: Subjective:Complains of pain and tenderness on the left wrist and forearm. Noted phlebitis Plan : will start po augmentin ibuprofen and warm compress This form is a permanent part of the medical record Clarification of your documentation is requested to better reflect the severity of illness and intensity of treatment of your patient. Indicators present [] Specify: [] [] Specify: [] [] Specify: [] [] Specify: [] Location in the medical record that reflects the above clinical findings: [] Treatment Provided: [] PHYSICIAN'S RESPONSE Based on your medical judgment of the clinical indicators outlined above please clarify the following: [] Practitioner response [] If unable to determine, please check the box, sign and date. Present On Admission (POA) Indicator: [] Present at the time of admission [] Not present at the time of admission [] Clinically Undetermined In responding to this query, please exercise your independent professional judgment. The fact that a question is asked does not imply that any particular answer is desired or expected. Thank you for your clarification on this documentation. 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
--- NOTE | 2017-02-22 14:11 | CP.PCM.PCO ---
Assessment & Plan - Assessment and Plan (Free Text) Assessment: Pt seen and examined Plan discussed with Dr De Jesus, patient SR , bp controlled , asymptomatic, denies chest pain or palpitations. Pt to continue on medical management metoprolol and cozaar and follow up with Dr Gant outpt. Discussed with Dr Gant and Dr Barragan who agree with plan.
--- NOTE | 2017-02-23 11:01 | CON ---
DATE: 02/22/2017 REASONS FOR EVALUATION: 1. Tachycardia. 2. Coronary artery disease, atherosclerotic heart disease. 3. Hypertension. PHYSICIAN REQUESTING CONSULT: Dr. Jignesh Gant. Thank you very much for asking me to see this patient. HISTORY OF PRESENT ILLNESS: Mr. Nba Hernández is a 62-year-old male with past medical history significant for hypertension and hypercholesterolemia who presented initially with nuclear stress test for the evaluation of dyspnea. The patient has had progressive dyspnea and fatigue with his normal work activities. 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 He was sent for an outpatient stress test. On stress test, the patient was found to have episodes of narrow complex tachycardia and was sent to the Emergency Department for further evaluation and management with the findings of junctional tachycardia. The patient denies any palpitations or chest pain. The patient was admitted, initially treated with IV Cardizem, found to have episodic bradycardia, and therefore was discontinued of Cardizem and placed on metoprolol. I was asked to see him in regards to further evaluation and management from an electrophysiologic standpoint. REVIEW OF SYSTEMS: Denies any anorexia, chills, daytime sleepiness, excessive sweating, falls, headache, change in appetite, has the aforementioned fatigue. No night sweats or snoring. No evidence of sleep apnea. No visual disturbances. No change in visual acuity or double vision. No ENT complaints. No epistaxis or nasal discharge. From a cardiovascular standpoint, there are no acrocyanosis, chest discomfort, chest pain while activity or rest, no evidence of claudication, diaphoresis. There is the aforementioned episodic dyspnea with some degree of dyspnea on exertion, no palpitations or syncope, no evidence of peripheral vascular disease, no claudication. No respiratory complaints of cough or sputum production. There is the aforementioned episodic shortness of breath. No GI complaints of abdominal pain, change in bowel habits, diarrhea, constipation, excessive fat, nausea, vomiting or diarrhea. No musculoskeletal complaint. No skin-related complaints. Normal gait. No focal or localized weakness. No sensory deficits noted. No psychosocial stressors. No heat or cold intolerance, excessive sweating, palpitations, polydipsia, or polyphagia. PAST MEDICAL HISTORY: As mentioned in the history of present illness. PAST SURGICAL HISTORY: Noncontributory. ALLERGIES: NO MEDICATION ALLERGIES ARE NOTED. LABORATORY DATA: On review of relevant labs, on intake the patient was not anemic, did have a white count of 11.4, glucose 133, chloride of 109, white count was 11.4 as mentioned previously. Renal function is within normal limits and total BNP was normal. TSH is within normal limits. Urine is within normal limits. PHYSICAL EXAMINATION: VITAL SIGNS: Temperature is 97.6, pulse is 64, blood pressure is 106/69, respiratory rate 18. GENERAL: He is well-developed, well-nourished, robust male, in no acute distress, able to speak in complete sentences. HEENT: Head is normocephalic and atraumatic. There is no adenike facial asymmetry. Mucous membranes are moist. CHEST: Clear to auscultation bilaterally. CARDIOVASCULAR: Regular rate and rhythm. S1 and S2. No S3 or S4. ABDOMEN: Soft, nontender, nondistended. Positive bowel sounds. EXTREMITIES: No cyanosis, clubbing or edema. Peripheral pulses are 2+ and symmetric in bilateral upper and lower extremities. On review of telemetry, the patient is noted at times to be what appears to be long RP tachycardia at 136 beats per minute, at times which does resolve. At the time of pre-stress test, the patient was noted to have episodes of again narrow complex tachycardia, which does occur spontaneously with a PAC and resulting in a similar tachycardia. On review of rhythm strip from 02/20/2017 at 10:42 a.m., again appears to be long RP tachycardia, which may have been atrial tachycardia. 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 Baseline 12-lead EKG does not show any evidence of preexcitation, normal voltage across the limb leads, normal voltage across the precordium. ASSESSMENT AND PLAN: 1. Tachycardia, which appears to be paroxysmal at this point. The patient does appear to be on a reasonable dose of metoprolol 25 mg b.i.d., which appears to be controlling his arrhythmia at this time. I have discussed with him the rationale of medical therapy. It is unclear whether these arrhythmias are indeed causing some of his intermittent symptoms of dyspnea and fatigue. At this point, I did discuss with him the possibility of ablation, but at this point, with him being minimally symptomatic, would attempt medical therapy. If at some point, he is unable to tolerate medications or if medications are ineffective, an electrophysiology study and possible ablation would be reasonable in this gentleman. He appears to understand via alternative medicine practitioner provided for by the hospital. 2. Coronary artery disease and atherosclerotic heart disease. The patient is status post exercise stress test. Further evaluation and management as per Dr. Rogelio Gant. 3. Hypertension, appears to be reasonably controlled at this point on beta-ulises therapy. Thank you for allowing me to participate in the care of your patient. Please do not hesitate to call with any questions with regard to his care. Darryl Brennan MD cc: MD Jacob Andrews MD
--- NOTE | 2017-02-23 12:06 | CP.PCM.DIS ---
Provider - Provider Date of Admission: 02/19/17 12:43 Attending physician: Jacob Barragan MD Diagnosis - Discharge Diagnosis (1) Sick sinus syndrome Status: Acute (2) Junctional tachycardia Status: Acute (3) Hypertension Status: Chronic Hospital Course - Lab Results Lab Results: Most Recent Lab Values WBC 11.4 K/uL (4.8-10.8) H 02/19/17 11:20 RBC 5.51 Mil/uL (4.40-5.90) 02/19/17 11:20 Hgb 15.6 g/dL (12.0-18.0) 02/19/17 11:20 Hct 46.7 % (35.0-51.0) 02/19/17 11:20 MCV 84.8 fl (80.0-94.0) 02/19/17 11:20 MCH 28.4 pg (27.0-31.0) 02/19/17 11:20 MCHC 33.5 g/dL (33.0-37.0) 02/19/17 11:20 RDW 12.7 % (11.5-14.5) 02/19/17 11:20 Plt Count 295 K/uL (130-400) 02/19/17 11:20 MPV 8.7 fl (7.2-11.7) 02/19/17 11:20 Neut % (Auto) 64.9 % (50.0-75.0) 02/19/17 11:20 Lymph % (Auto) 24.1 % (20.0-40.0) 02/19/17 11:20 Bureau % (Auto) 6.5 % (0.0-10.0) 02/19/17 11:20 Eos % (Auto) 3.4 % (0.0-4.0) 02/19/17 11:20 Baso % (Auto) 1.1 % (0.0-2.0) 02/19/17 11:20 Neut # 7.4 K/uL (1.8-7.0) H 02/19/17 11:20 Lymph # 2.8 K/uL (1.0-4.3) 02/19/17 11:20 Bureau # 0.7 K/uL (0.0-0.8) 02/19/17 11:20 Eos # 0.4 K/uL (0.0-0.7) 02/19/17 11:20 Baso # 0.1 K/uL (0.0-0.2) 02/19/17 11:20 PT 11.6 Seconds (9.8-13.1) 02/19/17 11:20 INR 1.0 (0.9-1.2) 02/19/17 11:20 APTT 35.7 Seconds (25.6-37.1) 02/19/17 11:20 Sodium 143 mmol/l (132-148) 02/19/17 11:20 Potassium 4.4 MMOL/L (3.6-5.0) 02/19/17 11:20 Chloride 109 mmol/L (98-107) H 02/19/17 11:20 Carbon Dioxide 23 mmol/L (22-30) 02/19/17 11:20 Anion Gap 15 (10-20) 02/19/17 11:20 BUN 19 mg/dl (9-20) 02/19/17 11:20 Creatinine 1.0 mg/dl (0.8-1.5) 02/19/17 11:20 Est GFR ( Amer) > 60 02/19/17 11:20 Est GFR (Non-Af Amer) > 60 02/19/17 11:20 Random Glucose 133 mg/dL (75-110) H 02/19/17 11:20 Calcium 8.9 mg/dL (8.4-10.2) 02/19/17 11:20 Total Bilirubin 0.3 mg/dl (0.2-1.3) 02/19/17 11:20 AST 21 U/L (17-59) 02/19/17 11:20 ALT 53 U/L (21-72) 02/19/17 11:20 Alkaline Phosphatase 113 U/L (38-126) 02/19/17 11:20 Troponin I < 0.0120 ng/mL (0.00-0.120) 02/20/17 06:15 NT-Pro-B Natriuret Pep 57.10 pg/ml (0-900) 02/19/17 11:20 Total Protein 7.2 G/DL (6.3-8.2) 02/19/17 11:20 Albumin 3.7 g/dL (3.5-5.0) 02/19/17 11:20 Globulin 3.5 gm/dL (2.2-3.9) 02/19/17 11:20 Albumin/Globulin Ratio 1.1 (1.0-2.1) 02/19/17 11:20 Triglycerides 136 mg/DL (0-149) 02/20/17 06:15 Cholesterol 170 mg/dL (0-199) 02/20/17 06:15 LDL Cholesterol Direct 120 mg/dL (0-129) 02/20/17 06:15 HDL Cholesterol 23 MG/DL (30-70) L 02/20/17 06:15 TSH 3rd Generation 4.06 mIU/ML (0.46-4.68) 02/19/17 11:20 Urine Color Yellow (YELLOW) 02/19/17 12:50 Urine Clarity Clear (Clear) 02/19/17 12:50 Urine pH 6.0 (5.0-8.0) 02/19/17 12:50 Ur Specific [place] 1.011 (1.003-1.030) 02/19/17 12:50 Urine Protein Negative mg/dL (NEGATIVE) 02/19/17 12:50 Urine Glucose (UA) Neg mg/dL (Normal) 02/19/17 12:50 Urine Ketones Negative mg/dL (NEGATIVE) 02/19/17 12:50 Urine Blood Negative (NEGATIVE) 02/19/17 12:50 Urine Nitrate Negative (NEGATIVE) 02/19/17 12:50 Urine Bilirubin Negative (NEGATIVE) 02/19/17 12:50 Urine Urobilinogen 0.2-1.0 mg/dL (0.2-1.0) 02/19/17 12:50 Ur Leukocyte Esterase Neg Jovon/uL (Negative) 02/19/17 12:50 Urine RBC (Auto) 2 /hpf (0-3) 02/19/17 12:50 Urine Microscopic WBC < 1 /hpf (0-5) 02/19/17 12:50 - Hospital Course Hospital Course: This is a 62 y/o male Discharge Exam - Head Exam Head Exam: NORMAL INSPECTION Discharge Plan - Discharge Medications Prescriptions: Losartan [Cozaar] 25 mg PO DAILY #30 tab Metoprolol Tartrate [Lopressor] 25 mg PO Q12 #60 tab - Follow Up Plan Condition: STABLE Disposition: HOME/ ROUTINE Instructions: Supraventricular Tachycardia (DC), Supraventricular Tachycardia ( GEN) Referrals: Jacob Barragan MD [Family Provider] - Jignesh Gant MD [Staff Provider] -
== END 2017-02-22 16:50 | disposition home or self-care (01) | DRG 309 ==
LOC: H.ER 10:40 → H.ERHOLD 12:43 → H.TEL 16:46
PROVIDERS: ADMIT Family Medicine; ATTEND Family Medicine
DX: I49.5 Sick sinus syndrome (principal); I47.1 Supraventricular tachycardia; I80.9 Phlebitis and thrombophlebitis of unspecified site; I10 Essential (primary) hypertension; T80.1XXA Vascular complications following infusion, transfusion and therapeutic injection, initial encounter; Z87.891 Personal history of nicotine dependence; G50.0 Trigeminal neuralgia; E78.00 Pure hypercholesterolemia, unspecified; I25.10 Atherosclerotic heart disease of native coronary artery without angina pectoris; Y84.8 Other medical procedures as the cause of abnormal reaction of the patient, or of later complication, without mention of misadventure at the time of the procedure